=== PATIENT | female | born 2000 | race Caucasian/White ===

== ENCOUNTER 2021-11-10 18:36 | Emergency (ER) | payer OTHER ==
[~2021-11-10] VITALS: Ht 170.2 cm; Wt 86.4 kg
[2021-11-10] MEDS ORDERED: CEPHALEXIN500 M1 PO (19:22)
[2021-11-10 19:35] VITALS: BP 117/85; PULSE 78; TEMP 97.9
== END 2021-11-10 19:35 | disposition home or self-care (01) ==
LOC: COL.ER 18:36
DX: S91.011A Laceration without foreign body, right ankle, initial encounter (principal); W22.8XXA Striking against or struck by other objects, initial encounter; Y93.64 Activity, baseball